=== PATIENT | male | born 1995 | race Caucasian/White ===

== ENCOUNTER 2016-06-21 16:09 | Emergency (ER) | payer OTHER ==
--- NOTE | 2016-06-21 16:47 | EDPHY ---
H & P Stated Complaint: Fell off ledge approx 3 ft high onto head, chest,and neck last night. Time Seen by Provider: 06/21/16 16:21 HPI/ROS: CHIEF COMPLAINT: Headache, neck pain, chest wall pain HISTORY OF PRESENT ILLNESS: The patient presents to the ED complaining of headache, neck pain and chest wall pain after a mechanical fall last night. The patient reportedly was trying to jump onto a concrete wall when he slipped and fell landing on his left side. The patient did strike his head. He complains of left cervical spine pain. He denies acute numbness or weakness. The patient also complains of left anterior chest wall pain which is worsened with deep breaths. The patient denies low back pain, lower extremity pain, upper extremity pain, numbness, weakness or other acute complaints. The patient did developed vomiting prior to arrival. REVIEW OF SYSTEMS: A comprehensive 10 point review of systems is otherwise negative aside from elements mentioned in the history of present illness. Source: Patient Exam Limitations: No limitations - Personal History Current Tetanus/Diphtheria Vaccine: Yes Current Tetanus Diphtheria and Acellular Pertussis (TDAP): Yes - Medical/Surgical History Hx Asthma: No Hx Chronic Respiratory Disease: No Hx Diabetes: No Hx Cardiac Disease: No Hx Renal Disease: No Hx Cirrhosis: No Hx Alcoholism: No Hx HIV/AIDS: No Hx Splenectomy or Spleen Trauma: No Other PMH: Depression, - Social History Smoking Status: Current some day smoker - Physical Exam Exam: General Appearance: Alert, no distress Head: Tenderness Eyes: Pupils equal, round, reactive ENT, Mouth: No hemotympanum, no oral trauma to palpation left temporal area Neck: In cervical collar, tenderness to palpation in his mid cervical spine Respiratory: Tenderness to palpation of left anterior chest wall, no subcutaneous emphysema Cardiovascular: Regular rate and rhythm Abdomen: Abdomen is soft and nontender, pelvis stable Skin: No lacerations, No abrasion Back: No midline T/L/S pain Extremities: Nontender, full range of motion Neurological: A&Ox3, normal motor function, normal sensory exam Constitutional: Initial Vital Signs Temperature (C) 36.7 C 06/21/16 16:15 Heart Rate 79 06/21/16 16:15 Respiratory Rate 94 H 06/21/16 16:15 Blood Pressure 132/86 H 06/21/16 16:15 O2 Delivery Mode Room Air Allergies/Adverse Reactions: Penicillins Allergy (Verified 06/21/16 16:12) Home Medications: Medication Instructions Recorded LaMICtal 06/21/16 Lexapro 06/21/16 Medical Decision Making - Diagnostics Imaging: CT head without contrast: Negative for intracranial hemorrhage or skull fracture. Study results reviewed by myself and discussed with radiologist Dr. Stephen Mason. CT cervical spine: Negative for acute fracture. Study results reviewed by myself and discussed with radiologist Dr. Stephen Mason. Chest x-ray: Negative for rib fracture, pneumothorax, hemothorax or other acute abnormality. Images reviewed by myself and discussed with radiologist. ED Course/Re-evaluation: The patient presents to the ED for evaluation of head, neck and chest pain following a fall yesterday. Given the patient's headache, vomiting and mechanism of his injury, a CT scan of the head and cervical spine were quickly ordered. Fortunately the results of those studies demonstrated no evidence of a significant intracranial hemorrhage or skull fracture. Additionally the patient has no evidence of a cervical spine fracture. Clinically the patient has no evidence of spinal cord injury. Patient did have some anterior chest wall pain but his chest x-ray demonstrates no evidence of a rib fracture, pneumothorax or hemothorax. The patient underwent serial examinations in the ED by myself over a 2 hour period. He remains hemodynamically stable. At this point time is injuries appear isolated to the soft tissues. Instructions will be to use NSAIDs and ice as needed. The patient should return to the ED for markedly worsening symptoms or other concerns. Differential Diagnosis: Differential diagnosis considered includes skull fracture, intracranial hemorrhage, cervical spine fracture, concussion - Data Points Medications Given: Discontinued Medications Ondansetron HCl (Zofran Odt) 4 mg PO EDNOW ONE Stop: 06/21/16 16:57 Last Admin: 06/21/16 16:59 Dose: 4 mg Departure - Departure Disposition: Home, Routine, Self-Care Clinical Impression: Cervical strain, acute, Scalp contusion, Chest wall contusion Condition: Good Instructions: Contusion in Adults (ED), Musculoskeletal Pain (ED) Referrals: Michael Davey MD [Medical Doctor] - As per Instructions
[2016-06-21] MEDS ORDERED: ONDANSETRON DISINTEGRATING 4 MG TAB PO ONE (16:56)
[2016-06-21] MEDS ORDERED: ONDANSETRON DISINTEGRATING 4 MG TAB ONE (16:57)
[2016-06-21] MEDS ORDERED: IBUPROFEN 600 MG TAB PO ONE (18:26)
[2016-06-21 18:28] VITALS: BP 118/75; PULSE 76; RESP 18; TEMP 97.9; O2SAT 98
== END 2016-06-21 18:47 | disposition home or self-care (01) ==
DX: S16.1XXA Strain of muscle, fascia and tendon at neck level, initial encounter (principal); S00.03XA Contusion of scalp, initial encounter; S20.212A Contusion of left front wall of thorax, initial encounter; F17.200 Nicotine dependence, unspecified, uncomplicated; W13.8XXA Fall from, out of or through other building or structure, initial encounter